=== PATIENT | female | born 1980 | race Caucasian/White ===

== ENCOUNTER 2018-12-22 14:44 | Emergency (ER) | payer OTHER ==
[~2018-12-22] VITALS: Ht 157.5 cm; Wt 61.2 kg
[2018-12-22] MEDS ORDERED: PROZAC20 MG PO (14:52)
[2018-12-22] MEDS ORDERED: BACTRIM DS TAB1 EACH PO (14:52)
[2018-12-22] MEDS ORDERED: ADDERALL 20 MG20 MG PO (14:53)
[2018-12-22] MEDS ORDERED: LAMICTAL200 MG PO (14:53)
[2018-12-22 15:12] LABS: ABSOLUTE LYMPHOCYTES 1.4 thou/uL (0.8-5.3); ABSOLUTE MONOCYTES 0.4 thou/uL (0.0-1.2); ABSOLUTE NEUTROPHILS 3.6 thou/uL (1.6-8.1); BASOPHILS 0.8 %; EOSINOPHILS 0.6 %; HEMATOCRIT 39.1 % (37.0-47.0); HEMOGLOBIN 13.4 gm/dL (12.0-15.0); LYMPHOCYTES 25.3 %; MCH 29.9 pg (26.0-34.0); MCHC 34.3 g/dL (28.0-37.0); MCV 87.1 fL (80.0-100.0); MONOCYTES 7.6 %; MPV 7.1 fl. (7.2-11.1); NUCLEATED RBCS 0 /100WBC; PLATELET COUNT* 354 thou/uL (150-400); POLYS 65.7 %; RBC 4.48 mil/uL (4.20-5.00); RDW-CV 13.5 % (10.5-14.5); WBC 5.5 thou/uL (4.0-11.0)
[2018-12-22 15:20] LABS: ANION GAP 12 mmol/L (7-16); BUN 13 mg/dL (7-18); CALCIUM 9.7 mg/dL (8.5-10.1); CHLORIDE 101 mmol/L (98-107); CO2 22 mmol/L (21-32); CREATININE 0.9 mg/dL (0.6-1.3); GLUCOSE 111 mg/dL (70-99); SODIUM 135 mmol/L (136-145)
[2018-12-22 15:22] LABS: APTT 28.5 Seconds (25.0-31.3)
[2018-12-22 15:38] LABS: ALKALINE PHOSPHATASE 93 U/L (46-116); CK-MB MASS 1.3 ng/mL (<0.5-3.6); LIPASE 110 U/L (73-393); MAGNESIUM 1.7 mg/dL (1.8-2.4); NT-PRO BRAIN NAT PEPTIDE 91 pg/mL (<300); SGOT 15 U/L (15-37); SGPT 20 U/L (30-65); TOTAL BILIRUBIN 0.2 mg/dL (<0.1-1.0); TOTAL PROTEIN 7.9 g/dL (6.4-8.2); TROPONIN-I LEVEL <0.06 ng/mL (<0.06)
[2018-12-22 15:48] VITALS: BP 101/64
--- NOTE | 2018-12-23 10:12 | EKG ---
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: MANUEL : 1980 Requested By: Markel Lobo Order Number: [id number] MD: Osmel Li Measurements Intervals [place] Rate: 91 P: 55 AR: 146 QRS: 11 QRSD: 78 T: 91 QT: 496 QTc: 611 Interpretive Statements Sinus rhythm Borderline repolarization abnormality Prolonged QT interval Baseline wander in lead(s) V2 No previous ECG available for comparison Electronically Signed On 12-23-2018 10:12:43 [employer] by Osmel Li [email or web address] <ELECTRONICALLY SIGNED> By: Osmel Li MD, LOCATED WITHIN [facility] 12/23/18 1012 1450 145 Osmel Li MD, FACC /EPI
== END 2018-12-22 15:49 | disposition home or self-care (01) ==
LOC: M.ERS 14:44
PROVIDERS: Family Medicine
DX: F41.9 Anxiety disorder, unspecified (principal); R07.89 Other chest pain; F31.9 Bipolar disorder, unspecified